=== PATIENT | male | born 1985 | race Two or more races ===

== ENCOUNTER 2020-09-10 14:12 | Emergency (ER) | payer MEDICAID, OTHER ==
[~2020-09-10] VITALS: Ht 167.6 cm; Wt 81.6 kg
[2020-09-10 15:45] LABS: Basophils # (auto) 0 10 ^3/uL (0-0.2); Basophils % (auto) 0.5 % (0.0-2.0); Eosinophils # (auto) 0.1 10 ^3/uL (0-0.8); Eosinophils % (auto) 1.2 % (0.0-7.0); Hematocrit 38.9 % (41.0-53.0); Hemoglobin 13.4 g/dL (13.5-17.5); Lymphocytes # (auto) 3.6 10 ^3/uL (0.4-5.4); Lymphocytes % (auto) 37.9 % (10.0-50.0); Mean Corpuscular Hemoglobin 32.6 pg (28.0-32.0); Mean Corpuscular Hgb Conc. 34.5 g/dL (32.0-36.0); Mean Corpuscular Volume 94.4 fL (80.0-100.0); Monocytes # (auto) 0.8 10 ^3/uL (0-1.3); Monocytes % (auto) 8.6 % (0.0-12.0); Neutrophils # (auto) 4.9 10 ^3/uL (1.6-8.6); Neutrophils % (auto) 51.8 % (37.0-80.0); Nucleated Red Blood Cells % 0.1 %; Platelet Count (auto) 226 10^3/uL (140-450); Red Blood Cells 4.12 10^6/uL (4.5-5.90); Red Cell Distribution Width 14.2 % (11.8-14.3); White Blood Cell 9.5 10^3/uL (4.4-10.8)
[2020-09-10 15:51] LABS: Albumin 3.5 g/dL (3.4-5.0); Calcium 8.2 mg/dL (8.5-10.1); Magnesium 2.4 mg/dL (1.6-2.6); Potassium 3.9 mmol/L (3.5-5.1)
[2020-09-10 15:55] LABS: BUN/Creatinine Ratio 32.1; Bilirubin, Total 0.7 mg/dL (0.2-1.0); Total Protein 6.6 g/dL (6.4-8.2)
[2020-09-10 16:41] VITALS: BP 109/74
[2020-09-10 17:04] LABS: Alcohol, Urine < 3.0 mg/dL (0-10); Amphetamine Screen, Urine POSITIVE (NEGATIVE); Barbiturate Scree,Urine NEGATIVE (NEGATIVE); Benzodiazephine Screen, Urine NEGATIVE (NEGATIVE); Cannabinoid Screen, Urine POSITIVE (NEGATIVE); Cocaine Screen, Urine NEGATIVE (NEGATIVE); Opiate Scree,Urine NEGATIVE (NEGATIVE); Phencyclidine Screen, Urine NEGATIVE (NEGATIVE)
[2020-09-10 17:11] LABS: Urine Bacteria NONE SEEN /hpf (None Seen); Urine Blood Negative /uL (Negative); Urine Mucus FEW (None Seen); Urine WBC 1 /hpf (0 - 3)
== END 2020-09-10 17:55 | disposition home or self-care (01) ==
LOC: ER 14:12
DX: F41.9 Anxiety disorder, unspecified (principal); R20.0 Anesthesia of skin; F15.10 Other stimulant abuse, uncomplicated; F17.210 Nicotine dependence, cigarettes, uncomplicated
CPT/HCPCS: 36415; 80053; 80307; 81001; 83690; 83735; 85025

== ENCOUNTER 2023-08-25 14:23 | Emergency (ER) | payer MEDICAID ==
[~2023-08-25] VITALS: Ht 167.6 cm; Wt 122.4 kg
[2023-08-25 14:32] VITALS: BP 144/95; PULSE 118; RESP 16; O2SAT 95
[2023-08-25] MEDS ORDERED: DexAMETHasone SOD PHOS 10MG/1ML VIAL INJ IM ONE (16:15)
[2023-08-25] MEDS ORDERED: AMOX500T3 PO (16:20)
[2023-08-26] MEDS ORDERED: LIDO2SOL26 PO (10:32)
== END 2023-08-25 22:38 | disposition home or self-care (01) ==
LOC: ER 14:23
DX: J03.90 Acute tonsillitis, unspecified (principal); F41.9 Anxiety disorder, unspecified; F17.210 Nicotine dependence, cigarettes, uncomplicated; F15.90 Other stimulant use, unspecified, uncomplicated

== ENCOUNTER 2023-08-26 08:48 | Emergency (ER) | payer MEDICAID ==
[~2023-08-26] VITALS: Ht 167.6 cm; Wt 122.9 kg
[~2023-08-26 08:48] MED LIST: AMOX500T3 PO
[2023-08-26 09:12] VITALS: BP 162/92; TEMP 99.5
[2023-08-26] MEDS: KETOROLAC TROMETH 60MG/2ML VIAL IM ONE (10:10)
[2023-08-26] MEDS: DexAMETHasone SOD PHOS 10MG/1ML VIAL INJ IM ONE (10:11)
[2023-08-26] MEDS ORDERED: LIDO2SOL26 PO (10:32)
[2023-08-26 11:05] VITALS: PULSE 74; RESP 18; O2SAT 96
== END 2023-08-26 11:07 | disposition home or self-care (01) ==
LOC: ER 08:48
DX: J03.90 Acute tonsillitis, unspecified (principal); F17.210 Nicotine dependence, cigarettes, uncomplicated; Z79.2 Long term (current) use of antibiotics; Z79.899 Other long term (current) drug therapy
CPT/HCPCS: 96372; 99284; J1100; J1885